=== PATIENT | male | born 1970 | race African-American/Black ===

== ENCOUNTER 2021-08-31 18:28 | Emergency (ER) | payer MEDICAID ==
[~2021-08-31] VITALS: Ht 182.9 cm; Wt 81.0 kg
[2021-08-31 18:35] VITALS: BP 165/105
[2021-08-31] MEDS ORDERED: FAMOTIDINE 20MG/2ML VIAL IV STA (20:16)
[2021-08-31] MEDS ORDERED: ONDANSETRON HCL 4MG/2ML INJ IV STA (20:16)
[2021-08-31] MEDS ORDERED: SODIUM CHLORIDE 0.9% 1,000 ML IV ONE (20:30)
== END 2021-08-31 23:26 | disposition left against medical advice (07) ==
LOC: ER 18:28
DX: R11.2 Nausea with vomiting, unspecified (principal); R53.1 Weakness; F12.10 Cannabis abuse, uncomplicated; Z88.0 Allergy status to penicillin
CPT/HCPCS: 93005; 99283; J7030